=== PATIENT | female | born 1995 | race African-American/Black ===

== ENCOUNTER 2021-12-23 19:25 | Emergency (ER) | payer SELFPAY ==
[2021-12-23 20:10] LABS: Bilirubin Neg (Negative); Blood, Urine 10 (Negative); Clarity Clear (Clear); Glucose, Urine (Dipstick) Normal (Negative); Ketone, Urine Negative (Negative); Leukocyte Negative (Negative); Nitrite Negative (Negative); Protein, Urine (Dipstick) Negative (Neg-Trace); Specific Gravity, Urine 1.015 (1.002-1.036)
[2021-12-23 20:11] LABS: Pregnancy Test - Urine (BHCG) Negative (Negative); Pregu Control Background? CLEAR/WHITE (CLR/WHITE); Pregu Control Bar Appear? YES (CONTROL BAR); Specific Gravity 1.015 (1.002-1.036)
[2021-12-23 20:16] LABS: Bacteria/HPF None Seen HPF (None Seen); Squamous Epithelial 0-3 HPF (0-3); WBC/HPF 0-3 HPF (0-3)
== END 2021-12-23 20:33 | disposition home or self-care (01) ==
LOC: CSHERS 19:25
DX: N92.6 Irregular menstruation, unspecified (principal)
CPT/HCPCS: 81003; 81015; 81025; 99284

== ENCOUNTER 2022-09-01 14:23 | Emergency (ER) | payer SELFPAY ==
[2022-09-01 15:35] LABS: #Eosinphils 0.2 10x3/uL (0.0-0.5); #Monocytes 0.4 10x3/uL (0.0-1.1); #Neutrophils 6.6 10x3/uL (1.5-8.4); %Basophils 0.2 % (0.0-2.0); %Eosinophils 1.9 % (0.0-6.0); %Lymphocytes 17.7 % (18.0-47.0); %Monocytes 4.2 % (0.0-10.0); %Neutrophils 75.9 % (40.0-75.0); Hemoglobin 11.6 g/dL (12.0-15.5); Mean Corpuscular HGB CONC 34.5 g/dL (32.0-36.0); Mean Corpuscular Hemoglobin 33.1 pg (27.0-33.0); Platelet Count 310 10x3/uL (150-450); RBC Distribution Width 11.6 % (11.5-14.5); White Blood Cell (WBC) Count 8.6 10x3/uL (3.5-10.5)
[2022-09-01] MEDS ORDERED: Ketorolac Tromethamine 30 MG/ML VIAL ONE (15:49)
[2022-09-01 15:51] LABS: Bilirubin Neg (Negative); Blood, Urine 10 (Negative); Glucose, Urine (Dipstick) Normal (Negative); Ketone, Urine 5 mg/dL (Negative); Leukocyte Negative (Negative); Nitrite Negative (Negative); Protein, Urine (Dipstick) Negative (Neg-Trace); Urobilinogen Normal mg/dL (Less than 2)
[2022-09-01 15:54] LABS: ALT (SGPT) 13 U/L (8-55); AST (SGOT) 16 U/L (5-34); Albumin 4.1 g/dL (3.5-5.0); Alkaline Phosphatase 36 U/L (40-110); Anion Gap 11 mmol/L (10-20); BUN (Urea Nitrogen) 10 mg/dL (7.0-18.7); Bilirubin, Total 0.3 mg/dL (0.2-1.2); Calc. Creatinine Clearance 0 mL/min (70-130); Calcium 9.1 mg/dL (7.8-10.44); Carbon Dioxide 24 mmol/L (22-29); Chloride 105 mmol/L (98-107); Estimated GFR 108; Globulin 2.9 g/dL (2.4-3.5); Glucose 128 mg/dL (70-105); Lipase 24 U/L (8-78); Potassium 3.6 mmol/L (3.5-5.1); Sodium 136 mmol/L (136-145)
[2022-09-01 15:54] LABS: Clarity Clear (Clear); Pregnancy Test - Urine (BHCG) Negative (Negative); Pregu Control Background? CLEAR/WHITE (CLR/WHITE); Pregu Control Bar Appear? YES (CONTROL BAR)
[2022-09-01 16:06] LABS: Bacteria/HPF 1+ HPF (None Seen); RBC/HPF None Seen HPF (0-3); Squamous Epithelial 0-3 HPF (0-3); WBC/HPF None Seen HPF (0-3)
== END 2022-09-01 15:45 | disposition home or self-care (01) ==
LOC: CSHERS 14:23
DX: S39.011A Strain of muscle, fascia and tendon of abdomen, initial encounter (principal); X58.XXXA Exposure to other specified factors, initial encounter
CPT/HCPCS: 36415; 80053; 81003; 81015; 81025; 83690; 85025; 96372; 99284; J1885

== ENCOUNTER 2023-05-23 10:03 | Emergency (ER) | payer OTHER | END 2023-05-23 10:59 | disposition home or self-care (01) | LOC: CSHERS 10:03 | DX: H60.501 Unspecified acute noninfective otitis externa, right ear (principal) | CPT/HCPCS: 99282 ==

== ENCOUNTER 2023-08-20 19:03 | Emergency (ER) | payer OTHER ==
[2023-08-20] MEDS ORDERED: Ondansetron PF 4 MG/2 ML Vial ONE (20:31)
[2023-08-20 21:03] LABS: #Eosinphils 0.1 10x3/uL (0.0-0.5); #Monocytes 0.5 10x3/uL (0.0-1.1); #Neutrophils 5.8 10x3/uL (1.5-8.4); %Basophils 0.3 % (0.0-2.0); %Eosinophils 1.1 % (0.0-6.0); %Lymphocytes 14.6 % (18.0-47.0); %Monocytes 6.5 % (0.0-10.0); %Neutrophils 77.1 % (40.0-75.0); Hematocrit 41.2 % (34.9-44.5); Hemoglobin 14.2 g/dL (12.0-15.5); Mean Corpuscular HGB CONC 34.5 g/dL (32.0-36.0); Mean Corpuscular Hemoglobin 33.2 pg (27.0-33.0); Mean Corpuscular Volume 96.3 fl (81.6-98.3); Mean Platelet Volume 9.2 fl (7.4-10.4); Platelet Count 271 10x3/uL (150-450); RBC Distribution Width 11.8 % (11.5-14.5); Red Blood Cell (RBC) Count 4.28 10x6/uL (3.90-5.03); White Blood Cell (WBC) Count 7.5 10x3/uL (3.5-10.5)
[2023-08-20 21:11] LABS: BHCG - Serum Negative (NEGATIVE); Pregs Control Background? CLEAR/WHITE (CLR/WHITE); Pregs Control Bar Appear? YES (CONTROL BAR)
[2023-08-20 21:17] LABS: ALT (SGPT) 24 U/L (8-55); AST (SGOT) 30 U/L (5-34); Albumin 4.8 g/dL (3.5-5.0); Alkaline Phosphatase 51 U/L (40-110); Anion Gap 15 mmol/L (10-20); BUN (Urea Nitrogen) 6 mg/dL (7.0-18.7); Bilirubin, Total 0.3 mg/dL (0.2-1.2); Calc. Creatinine Clearance 0 mL/min (70-130); Calcium 8.9 mg/dL (7.8-10.44); Carbon Dioxide 21 mmol/L (22-29); Chloride 105 mmol/L (98-107); Estimated GFR 107; Globulin 3.5 g/dL (2.4-3.5); Glucose 83 mg/dL (70-105); Potassium 3.5 mmol/L (3.5-5.1); Protein, Total 8.3 g/dL (6.0-8.3); Sodium 137 mmol/L (136-145)
[2023-08-20] MEDS ORDERED: Dicyclomine 20 MG/2 ML VIAL ONE (21:58)
[2023-08-20 22:26] LABS: Bilirubin Neg (Negative); Blood, Urine 25 (Negative); Clarity Clear (Clear); Glucose, Urine (Dipstick) Normal (Negative); Ketone, Urine 5 mg/dL (Negative); Leukocyte Negative (Negative); Nitrite Negative (Negative); Protein, Urine (Dipstick) Negative (Neg-Trace); Urobilinogen Normal mg/dL (Less than 2)
[2023-08-20 22:47] LABS: Bacteria/HPF None Seen HPF (None Seen); CAUTI Indications for Culture Fever or rigors; RBC/HPF 0-3 HPF (0-3); Squamous Epithelial 0-3 HPF (0-3); WBC/HPF None Seen HPF (0-3)
[2023-08-20 22:49] LABS: Urine Culture Reflex No No
== END 2023-08-20 22:42 | disposition home or self-care (01) ==
LOC: CSHERS 19:03
DX: R11.2 Nausea with vomiting, unspecified (principal); R19.7 Diarrhea, unspecified
CPT/HCPCS: 80053; 81001; 84703; 85025; 96361; 96372; 96374; J2405

== ENCOUNTER 2024-11-14 10:03 | Emergency (ER) | payer BC, OTHER ==
[2024-11-14] MEDS ORDERED: Fluorescein Opthalmic Strip ONE (10:19)
[2024-11-14] MEDS ORDERED: Proparacaine 0.5% Opth 15 ML BOT ONE (10:20)
== END 2024-11-14 12:14 | disposition home or self-care (01) ==
LOC: CSHERS 10:03
DX: S05.02XA Injury of conjunctiva and corneal abrasion without foreign body, left eye, initial encounter (principal); Z55.0 Illiteracy and low-level literacy; W21.00XA Struck by hit or thrown ball, unspecified type, initial encounter
CPT/HCPCS: 99283

== ENCOUNTER 2025-09-17 13:05 | Emergency (ER) | payer BC, OTHER ==
[2025-09-17] MEDS ORDERED: Ondansetron PF 4 MG/2 ML Vial ONE (13:39)
[2025-09-17 14:07] LABS: #Basophils 0.03 10x3/uL (0.0-0.2); #Eosinophils 0.12 10x3/uL (0.0-0.5); #Monocytes 0.56 10x3/uL (0.0-1.1); #Neutrophils 4.98 10x3/uL (1.5-8.4); %Basophils 0.4 % (0.0-2.0); %Eosinophils 1.6 % (0.0-6.0); %Lymphocytes 26.1 % (18.0-47.0); %Monocytes 7.2 % (0.0-10.0); %Neutrophils 64.3 % (40.0-75.0); Hematocrit 37.6 % (34.9-44.5); Hemoglobin 12.8 g/dL (12.0-15.5); Mean Corpuscular Hemoglobin 32.7 pg (27.0-33.0); Mean Corpuscular Volume 96.2 fL (81.6-98.3); Platelet Count 264 10x3/uL (150-450); Red Blood Cell (RBC) Count 3.91 10x6/uL (3.90-5.03); White Blood Cell (WBC) Count 7.74 10x3/uL (3.5-10.5)
[2025-09-17 14:29] LABS: Glucose, Urine (Dipstick) Normal (Negative); Leukocyte Negative (Negative); Protein, Urine (Dipstick) Negative (Neg-Trace); Specific Gravity, Urine 1.005 (1.005-1.030)
[2025-09-17 14:49] LABS: ALT (SGPT) 20 U/L (Less than 34); AST (SGOT) 28 U/L (11-34); Albumin 4.4 g/dL (3.1-4.5); Alkaline Phosphatase 45 U/L (40-110); Anion Gap 11 mmol/L (10-20); BUN (Urea Nitrogen) 10 mg/dL (7.0-18.7); Bilirubin, Total 0.4 mg/dL (0.3-1.2); Calc. Creatinine Clearance 0 mL/min (70-130); Calcium 9.7 mg/dL (7.8-10.44); Carbon Dioxide 26 mmol/L (22-29); Chloride 105 mmol/L (98-107); Globulin 3.4 g/dL (2.4-3.5); Glucose 67 mg/dL (70-105); Lipase 19 U/L (8-78); Potassium 3.6 mmol/L (3.5-5.1); Sodium 138 mmol/L (136-145)
[2025-09-17 14:59] LABS: BHCG - Serum Negative (NEGATIVE); Pregs Control Background? CLEAR/WHITE (CLR/WHITE); Pregs Control Bar Appear? YES (CONTROL BAR)
[2025-09-17 15:26] LABS: Bacteria/HPF None Seen HPF (None Seen); CAUTI Indications for Culture Pelvic or flank pain; RBC/HPF None Seen HPF (0-3); Urine Culture Reflex No No; WBC/HPF None Seen HPF (0-3)
== END 2025-09-17 16:22 | disposition home or self-care (01) ==
LOC: CSHERS 13:05
DX: K52.9 Noninfective gastroenteritis and colitis, unspecified (principal)
CPT/HCPCS: 80053; 81001; 83690; 84703; 85025; 96374; J2405